=== PATIENT | male | born 1990 | race Caucasian/White ===

== ENCOUNTER 2022-01-01 22:05 | Emergency (ER) | payer SELFPAY ==
[~2022-01-01] VITALS: Ht 172.7 cm; Wt 75.0 kg
[2022-01-01 23:15] LABS: BASOPHILS % 0.4 % (0.0-2.0); EOSINOPHILS % 0.6 % (0.0-5.0); HEMATOCRIT. 44.2 % (42.0-52.0); HEMOGLOBIN. 14.6 g/dL (14.0-18.0); LYMPHOCYTES % 19.1 % (20.0-50.0); MEAN CORPUSCULAR VOLUME 90.7 fL (80.0-94.0); MEAN PLATELET VOLUME 7.1 fl (7.4-10.4); MONOCYTES % 4.9 % (2.0-8.0); PLATELET 538 x1000/uL (130-400); RED BLOOD CELL COUNT 4.87 mill/uL (4.7-6.1); RED CELL DISTRIBUTION WIDTH 13.9 % (11.6-14.6)
[2022-01-01 23:17] LABS: CHLORIDE 104 mEq/L (98-107)
[2022-01-01 23:32] LABS: ETHANOL BLOOD 26 mg/dL
[2022-01-02] MEDS ORDERED: LORAZEPAM 1MG TABLET PO ONE ×2 (00:30→05:00)
[2022-01-02] MEDS ORDERED: PHENOBARBITAL 60MG TABLET PO NR (00:45)
[2022-01-02 05:00] VITALS: BP 152/89
== END 2022-01-02 05:34 | disposition home or self-care (01) ==
LOC: ER 22:05
DX: T43.621A Poisoning by amphetamines, accidental (unintentional), initial encounter (principal); X58.XXXA Exposure to other specified factors, initial encounter; F15.10 Other stimulant abuse, uncomplicated; F10.239 Alcohol dependence with withdrawal, unspecified; Y90.1 Blood alcohol level of 20-39 mg/100 ml
CPT/HCPCS: 36415; 80053; 80320; 82962; 84443; 85025; 99285; G0480